=== PATIENT | female | born 1965 | race Caucasian/White ===

== ENCOUNTER 2017-07-15 18:25 | Emergency (ER) | payer OTHER ==
[~2017-07-15] VITALS: Ht 172.7 cm; Wt 104.9 kg
[~2017-07-15 18:25] MED LIST: ADVIL,NUPRIN,M200 MG PO; BENTYL10 MG PO; CALCIO DEL MAR500 MG PO; FISH OIL CONC1 EACH PO; LISINOPRIL20 MG PO; MONONESSA1 EACH PO; NEXIUM40 MG PO; PERCOCET 5/31 TABLET PO; VITAMIN C1000 MG PO; VITAMIN D1000 UNIT PO; ZOFRAN4 MG PO
[2017-07-15 22:38] VITALS: BP 147/96
== END 2017-07-15 22:38 | disposition home or self-care (01) ==
LOC: RME 18:25 → EME 18:25 → RME 22:38
DX: S06.0X0A Concussion without loss of consciousness, initial encounter (principal); S16.1XXA Strain of muscle, fascia and tendon at neck level, initial encounter; S00.91XA Abrasion of unspecified part of head, initial encounter; W01.0XXA Fall on same level from slipping, tripping and stumbling without subsequent striking against object, initial encounter; Y93.K1 Activity, walking an animal; I10 Essential (primary) hypertension; Z95.0 Presence of cardiac pacemaker
CPT/HCPCS: 70450; 99281; 99283